=== PATIENT | male | born 1945 | race Hispanic/Latino ===

== ENCOUNTER 2023-12-03 09:39 | Day surgery (SDC) | payer OTHER ==
[2023-12-03 09:53] LABS: Absolute Basophils 0.1 K/uL (0-0.5); Absolute Eosinophils 0.3 K/uL (0-0.5); Absolute Monocytes 0.8 K/uL (0.1-1.3); Absolute Neutrophil 6.8 K/uL (1.8-8.0); Basophils % 1.2 % (0-1.3); Hemoglobin 14.7 g/dL (13.6-17.9); Lymphocytes % 27.3 % (15.3-44.8); MCH 29.6 pg (27.0-35.0); MCHC 32.6 g/dL (32.0-36.0); MPV 7.2 fL (7.6-11.3); Monocytes % 7.4 % (3.3-12.3); Neutrophils % 61.1 % (41.7-73.7); Platelets 266 thou/uL (152-406); RBC Red Blood Cell Count 4.94 M/uL (4.33-5.43); Red Cell Distribution Width 14.2 % (12.1-15.2)
[2023-12-03 10:16] LABS: Anion Gap 4.2 mEq/L (5.0-15.0); Potassium 4.2 mEq/L (3.5-5.1)
[2023-12-03] MEDS: Ringers Lactate 1,000 ML IV ONE (10:16)
--- NOTE | 2023-12-03 10:59 | EKG ---
Test Date: 2023-12-03 Test Time: 09:16:27 Battery Container Inspector: PREO MEASUREMENT RESULTS: Intervals: Rate: 59 MT: QRSD: 110 QT: 434 QTc: 429 [place]: P: MT: QRS: -31 T: 48 INTERPRETIVE STATEMENTS: Atrial fibrillation with slow ventricular response Left axis deviation Right bundle branch block Septal infarct, age undetermined Abnormal ECG Compared to ECG 04/05/2015 15:49:31 Right bundle-branch block now present Myocardial infarct finding now present Sinus rhythm no longer present Incomplete right bundle-branch block no longer present ST (T wave) deviation no longer present Electronically Signed On 12-03-23 10:58:20 CDT by Partha Ross
[2023-12-03] MEDS ORDERED: propofoL 200 MG/20 ML VIAL IV ONE (11:14)
[2023-12-03] MEDS ORDERED: LIDOCAINE 1% MPF 5 ML VIAL ONE (11:14)
[2023-12-03] MEDS ORDERED: FENTANYL CITR 100 MCG/2 ML ONE (11:14)
[2023-12-03] MEDS ORDERED: MIDAZOLAM HCL 2 MG/2 ML INJ ONE (11:14)
[2023-12-03] MEDS ORDERED: ONDANSETRON 4 MG/2 ML VIAL ONE (11:14)
[2023-12-03] MEDS ORDERED: ROCURONIUM 50 MG/5 ML VIAL IV ONE (11:51)
[2023-12-03] MEDS: CEFAZOLIN SODIUM 2 GM/VIAL ONE (12:20)
[2023-12-03] MEDS ORDERED: KETOROLAC 30 MG/ML INJ ONE (12:43)
[2023-12-03] MEDS: BUPIVACAINE 0.25% PF 30 ML VIAL ONE (12:45)
--- NOTE | 2023-12-03 12:57 | P.OP ---
Preoperative diagnosis: RIGHT Buttock Recurrent Hemangioma Postoperative diagnosis: RIGHT Buttock Recurrent Hemangioma Primary procedure: Wide Local Excision of RIGHT Buttock Recurrent Hemangioma Anesthesia: GETA + Local Estimated blood loss: <10cc Specimen: RIGHT Buttock Recurrent Hemangioma Findings: ~ 10cm x 7cm RIGHT Buttock Recurrent Hemangioma Complications: None Transferred to: Recovery Room Condition: Good
[2023-12-03] MEDS: LIDOCAINE HCL/EPINEPHRINE 20 ML MDV ONE (13:00)
[2023-12-03] MEDS ORDERED: GLYCOPYRROLATE 0.2 MG/ML SYR ONE (13:03)
[2023-12-03] MEDS ORDERED: NEOSTIGMINE 1 MG/ML -10 ML VIAL ONE (13:03)
[2023-12-03] MEDS: HYDROCODONE/APAP 7.5/325 MG TAB ONE (14:45)
[2023-12-03 19:05] VITALS: BP 130/73; TEMP 97.3; O2SAT 98
--- NOTE | 2023-12-04 01:18 | OP ---
Date of Procedure: 12/03/2023 Surgeon: Abel Lackey MD, Preoperative Diagnosis: Right buttock recurrent hemangioma. Postoperative Diagnosis: Right buttock recurrent hemangioma. Procedure Performed: Wide local excision, right buttock meningioma. Anesthesia: General endotracheal plus local with 1% lidocaine with epinephrine. Estimated Blood Loss: 10 cc. Specimen: Right buttock recurrent hemangioma skin lesion. Findings: Approximately 10 cm x 7 cm into the adipose tissue, right buttock recurrent hemangioma. Complications: None. Disposition: The patient was transferred recovery room in good condition. Procedure In Detail: After informed consent was obtained, the patient was brought to the operating r oom, prepped and draped in usual sterile fashion. After adequate anesthesia was achieved, I made an elliptical incision around the area of the right buttock, where an obvious large granulating wound wi th hypervascularity was appreciated. I anesthetized this area with 1% lidocaine with epinephrine. U ltimately, I made an elliptical incision around this for approximately 10 cm x 7 cm down the subcutan eous tissues. I used electrocautery to further take out the remainder of this tissue down into the s ubcutaneous fat and ultimately removed the skin lesion and sent it off for pathologic examination. T his area was copiously irrigated at the end, partially reapproximated using interrupted 3-0 nylon sut ures and then packed with Vashe and sterile Kerlix and a sterile dressing placed over top. The patie nt tolerated procedure without incident or complication, transferred to PACU in good condition. All counts were correct at the end of the case. MELLISSA/RYAN Voice ID: [id number] Report ID: [id number]
--- NOTE | 2023-12-06 14:48 | EKG ---
Test Date: 2023-12-03 Test Time: 09:17:21 Beater Engineer: PREO MEASUREMENT RESULTS: Intervals: Rate: 59 MN: 170 QRSD: 112 QT: 446 QTc: 441 [place]: P: 83 MN: 170 QRS: -36 T: 45 INTERPRETIVE STATEMENTS: Sinus bradycardia with premature supraventricular complexes Left axis deviation Right bundle branch block Septal infarct, age undetermined Abnormal ECG Compared to ECG 12/03/2023 09:16:27 Atrial premature complex(es) now present Atrial fibrillation no longer present Myocardial infarct finding still present Electronically Signed On 12-06-23 14:39:59 CDT by Geovanny Brunson
== END 2023-12-03 15:40 | disposition home or self-care (01) ==
LOC: OR 09:39
PROVIDERS: ATTEND Surgery
PROC: 0JB90ZZ Excision of Buttock Subcutaneous Tissue and Fascia, Open Approach (ICD-10-PCS; principal; 2023-12-03 12:00)
DX: D18.01 Hemangioma of skin and subcutaneous tissue (principal); L85.9 Epidermal thickening, unspecified
CPT/HCPCS: 36415; 80048; 85025; 88305; 93005; J2001; J2250; J2405; J2704; J2710; J3010; J7120